=== PATIENT | female | born 1970 | race Hispanic/Latino ===

== ENCOUNTER 2019-03-14 08:00 | Emergency (ER) | payer SELFPAY ==
[~2019-03-14] VITALS: Ht 149.9 cm; Wt 74.8 kg
[2019-03-14 08:54] LABS: PREGNANCY TEST, URINE NEGATIVE (NEGATIVE)
[2019-03-14 08:58] LABS: BILIRUBIN,URINE NEGATIVE (NEGATIVE); CLARITY,URINE CLOUDY (CLEAR); COLOR,URINE RED (YELLOW); KETONES,URINE NEGATIVE (NEGATIVE); LEUKOCYTE ESTERASE ,URINE MODERATE (NEGATIVE); NITRITE,URINE NEGATIVE (NEGATIVE); PROTEIN,URINE DIPSTICK 2+ (NEGATIVE); URINE UROBILINOGEN 0.2 mg/dL (0.2 - 1)
[2019-03-14 09:40] LABS: BACTERIA,URINE FEW /HPF; EPITHELIAL CELLS,URINE FEW /LPF
== END 2019-03-14 10:25 | disposition home or self-care (01) ==
LOC: ER 08:00
DX: R53.1 Weakness (principal); R11.0 Nausea; M54.5 Low back pain; N30.91 Cystitis, unspecified with hematuria; R51 Headache
CPT/HCPCS: 81001; 81025; 99283